=== PATIENT | female | born 1965 | race Caucasian/White ===

== ENCOUNTER 2018-03-08 05:07 | Emergency (ER) | payer SELFPAY ==
[~2018-03-08] VITALS: Ht 160 cm; Wt 68.0 kg
[2018-03-08 05:07] VITALS: BP_SYST 161
[~2018-03-08 05:07] MED LIST: ANXIETY MEDS; BP MEDS; MOTRIN; VICODIN
[2018-03-08] MEDS ORDERED: KETOROLAC TROMETHAMINE 60 MG/2 ML VIAL IM ONE (05:15)
[2018-03-08] MEDS ORDERED: MORPHINE 4 MG/ML INJ. SYRINGE IM ONE (06:00)
[2018-03-08 06:38] VITALS: BP_SYST 15
== END 2018-03-08 06:38 ==
LOC: SED 05:07
DX: R07.89 Other chest pain (principal); F17.210 Nicotine dependence, cigarettes, uncomplicated; R03.0 Elevated blood-pressure reading, without diagnosis of hypertension; Y04.0XXA Assault by unarmed brawl or fight, initial encounter; Y93.89 Activity, other specified; Y92.89 Other specified places as the place of occurrence of the external cause; Y99.8 Other external cause status
CPT/HCPCS: 93005; 96372; 99284; J1885; J2270

== ENCOUNTER 2018-03-08 09:49 | Emergency (ER) | payer SELFPAY ==
[~2018-03-08] VITALS: Ht 157.5 cm; Wt 68.0 kg
[2018-03-08 10:01] VITALS: BP_SYST 203
[2018-03-08] MEDS ORDERED: KETOROLAC TROMETHAMINE 60 MG/2 ML VIAL IM ONE (10:30)
== END 2018-03-08 12:46 ==
LOC: SED 09:49
DX: M94.0 Chondrocostal junction syndrome [Tietze] (principal); R07.89 Other chest pain; R03.0 Elevated blood-pressure reading, without diagnosis of hypertension
CPT/HCPCS: 71046; 96372; 99284; J1885

== ENCOUNTER 2018-03-13 15:13 | Emergency (ER) | payer MEDICAID ==
[~2018-03-13] VITALS: Ht 154.9 cm; Wt 86.2 kg
[2018-03-13 15:15] VITALS: BP_SYST 165
--- NOTE | 2018-03-13 15:17 | NUR ---
12 lead EKG done in triage room and shown to Dr. Deal for interpretation.
--- NOTE | 2018-03-13 19:14 | NUR ---
Patient to ER bed 3 to gown for evaluation. Side rails up. Report given to Radha RAMSAY.
--- NOTE | 2018-03-13 19:15 | NUR ---
Patient AAO x4 sitting in bed c/o chest wall pain to right side x 1 week 03/31 radiating from sternum to right axillary status post fall and crushing injury from " falling on top of me", shortness of breath on inspiration, patient states she was incarcerated for 1 week without any adequate pain control. Patient taking naproxen and aspirin at home for pain with no relief. Vital signs within normal limits. Will continue to monitor.
[2018-03-13] MEDS ORDERED: KETOROLAC TROMETHAMINE 30 MG VIAL IM ONE (19:45)
[2018-03-13] MEDS ORDERED: HYDROcodone/ACETAMIN 5-325 MG TAB (NORCO/ VICODIN) PO ONE (20:30)
[2018-03-13 21:27] VITALS: BP_SYST 168
== END 2018-03-13 21:27 | disposition home or self-care (01) ==
LOC: SED 15:13
DX: R07.81 Pleurodynia (principal); R07.9 Chest pain, unspecified; I10 Essential (primary) hypertension; F41.9 Anxiety disorder, unspecified
CPT/HCPCS: 71045; 71100; 96372; 99284; J1885; 93005

== ENCOUNTER 2018-08-24 13:00 | Inpatient (IN) | payer MEDICAID ==
[~2018-08-24] VITALS: Ht 180.3 cm; Wt 97.1 kg
[2018-08-24] VITALS (7 sets, daily range): BP systolic 134–206
[2018-08-24] MEDS ORDERED: NS 500 ML IV ONE (13:15)
[2018-08-24] MEDS ORDERED: GLUCAGON,HUMAN RECOMBINANT 1 MG VIAL SUBCUT ONE (13:15)
--- NOTE | 2018-08-24 13:20 | NUR ---
Pt was found at home with lacs to left wrist. Pt's family member states that pt was voicing to harm herself earlier. Pt's family member at bedside. Pt does not state if she is currenly wanting to harm herself.
--- NOTE | 2018-08-24 13:20 | NUR ---
Patient to ER bed 5 to gown for evaluation. Side rails up.
--- NOTE | 2018-08-24 13:21 | NUR ---
Patient's belongings taken out from room for safety.
--- NOTE | 2018-08-24 13:25 | NUR ---
ER Dr. Lafleur at bedside examining patient.
[2018-08-24] MEDS ORDERED: DIPH-TET-PERTUS Vaccine 0.5 ML VIAL (ADACEL) I.M. ONE (13:30)
--- NOTE | 2018-08-24 13:39 | NUR ---
Called Poison Control at [phone] and spoke with Poison control staff. Pt refusing to admit what medications rupert took, Poison control notified of pt's home medications ,Per recomendations:Check aspirin levels in lower than 35 start treatment, check heart rate and BP if decreases , start fluids ,if fluids not working start Calcium 1 1/2 times more than normal, check BS, check EKG for QRS prolongation, observ for 24 hours for possible diltiazem,monitor for seizures . Dr. royal. Will continue to monitor patient.
[2018-08-24] MEDS ORDERED: METO50TA7 PO (13:46)
[2018-08-24] MEDS ORDERED: CLI.05P TD (13:46)
[2018-08-24] MEDS ORDERED: SERT25TA PO (13:46)
[2018-08-24] MEDS ORDERED: ESCI10TA PO (13:46)
[2018-08-24] MEDS ORDERED: DILT120C89 PO (13:46)
[2018-08-24] MEDS ORDERED: HCT25 PO (13:46)
[2018-08-24] MEDS ORDERED: LOSA1TAB40 PO (13:46)
[2018-08-24] MEDS ORDERED: CEPH-568 PO (13:46)
[2018-08-24] MEDS ORDERED: HYDR-3698 PO (13:46)
[2018-08-24] MEDS ORDERED: COLC0.6C PO (13:46)
[2018-08-24] MEDS ORDERED: PRO10 PO (13:46)
--- NOTE | 2018-08-24 13:47 | NUR ---
Medication reconciliation completed with information provided by Prescription bottles brought in with patient. Any prior medication reconciliation on file was reviewed and corrected.
--- NOTE | 2018-08-24 14:00 | NUR ---
Patient's family member continues to be at bedside with patient. Patient states she wants to sleep.
[2018-08-24 14:18] LABS: ANION GAP 9 (5-15); CHLORIDE 106 mmol/L (98-107); CREATININE 0.67 mg/dL (0.55-1.30); GLUCOSE 118 mg/dL (70-99); POTASSIUM 4.1 mmol/L (3.5-5.1); SODIUM SERUM 141 mmol/L (136-145); UREA NITROGEN, BLOOD 21 mg/dL (8-21)
[2018-08-24 14:21] LABS: WHITE BLOOD COUNT (AUTO) 6.6 K/uL (4.8-10.8)
[2018-08-24 14:22] LABS: BASOPHILS % (AUTO) 0.6 % (0.0-2.0); EOSINOPHILS % (AUTO) 1.4 % (0.0-4.0); HEMATOCRIT 35.6 % (36-48); HEMOGLOBIN 11.4 g/dL (12.0-16.0); LYMPHOCYTES % (AUTO) 15.2 % (20.5-51.5); MEAN CORPUSCULAR HEMOGLOBIN 27 pg (27-31); MEAN CORPUSCULAR HGB CONC 32 % (32-36); MEAN CORPUSCULAR VOLUME 83 fL (79.0-98.0); MONOCYTES # (AUTO) 0.3 K/uL (0.0-1.0); MONOCYTES % (AUTO) 4.9 % (1.7-9.3); NEUTROPHILS # (AUTO) 5.2 K/uL (1.8-7.7); NEUTROPHILS % (AUTO) 77.9 % (40.0-70.0); PLATELET COUNT (AUTO) 256 K/uL (130-430); RED BLOOD CELL COUNT(AUTO) 4.28 MIL/uL (4.2-6.2); RED CELL DISTRIBUTION WIDTH 15.4 % (9.0-15.0)
[2018-08-24 14:23] LABS: EOSINOPHILS # (AUTO) 0.1 K/uL (0.0-0.4)
[2018-08-24 14:26] LABS: ALANINE AMINOTRANSFERASE 13 U/L (12-78); ALBUMIN 3.2 g/dL (3.4-4.8); ASPARTATE AMINOTRANSFERASE 16 U/L (10-37); CALCIUM 8.6 mg/dL (8.4-11.0); TOTAL BILIRUBIN 0.2 mg/dL (0.0-1.0)
[2018-08-24 14:27] LABS: ACETAMINOPHEN < 1 ug/mL (1-30); ALCOHOL, BLOOD < 3 mg/dL (<10); GFR AFRICAN AMERICAN 119 mL/min (>90)
--- NOTE | 2018-08-24 15:46 | NUR ---
Pt removed from bedpan, small amount of urine obtained not enough for lab. Pt continues to refuse restrepo cath stating she will try later. c/o left hip pain stating she fell yesterday and was seen at unknown facility notified
--- NOTE | 2018-08-24 16:09 | NUR ---
Note nickieamna in EDM - 08/24/18 at 1610 by JOSIAS # 14 FR straight catheter with use of sterile technique. Immediate return of 150 cc yellow cloudy urine noted. Urine sample collected and sent to lab. Pt tolerated procedure well. Patient attempt to use bedpan with little return
[2018-08-24 16:29] LABS: BARBITURATE, URINE NEGATIVE (NEG <=200); BENZODIAZEPINE, URINE NEGATIVE (NEG <=150); CANNABINOID, URINE NEGATIVE (NEG <=50); COCAINE, URINE NEGATIVE (NEG <=150); METHAMPHETAMINES SCREEN,URINE NEGATIVE (NEG <=500); OPIATE, URINE NEGATIVE (NEG <=100); PHENCYCLIDINE SCREEN,URINE NEGATIVE (NEG <=25); UR TRICYCLIC ANTIDEPRESSANTS NEGATIVE (NEG <=300); URINE AMPHETAMINE NEGATIVE (NEG <=500); URINE METHADONE NEGATIVE (NEG <=200); URINE OXYCODONE SCREEN NEGATIVE (NEG <=100); URINE PROPOXYPHENE SCREEN NEGATIVE (NEG <=300)
[2018-08-24] MEDS ORDERED: KETOROLAC TROMETHAMINE 30 MG VIAL IVP ONE (17:00)
--- NOTE | 2018-08-24 17:30 | NUR ---
Patient's family member present at bedside and patient states she wants to sleep.
--- NOTE | 2018-08-24 18:04 | NUR ---
Admission to ICU Pt admitted to ICU [address] Garcia. Pt currently states she wants to "harm" herself. All belongings brought with pt and kept outside of room. Pt will be kept under direct observation.
--- NOTE | 2018-08-24 18:15 | NUR ---
SITTER: Sitter at bedside. Side rails up. Patient states she is hungry, provided patient with snacks.
--- NOTE | 2018-08-24 18:20 | NUR ---
Psych Consult Consult called to Dr. Beltre.
--- NOTE | 2018-08-24 18:30 | NUR ---
Patient states she is sleepy and wants to sleep. Patient states she still wants to hurt herself.
--- NOTE | 2018-08-24 18:45 | NUR ---
Patient asleep, equal chest rise and fall.
--- NOTE | 2018-08-24 19:00 | NUR ---
Dr. Garcia at bedside examining Pt.
--- NOTE | 2018-08-24 19:00 | NUR ---
Patient being seen by Dr. Garcia.
--- NOTE | 2018-08-24 19:15 | NUR ---
Endorsed plan of care to Abram RAMSAY. Patient still stating she wants to harm herself.
--- NOTE | 2018-08-24 19:31 | NUR ---
PM Assessment Pt in bed resting. AAOx4. On RA. SB shown on monitor. no s/s of distress at this time. Pt has RAC 18g SL. Iv site C/D/I. Lacerations noted left wrist. Bed locked in lowest position, call light in reach, safety precautions in place. Will continue to monitor Pt 1:1 throughout shift.
--- NOTE | 2018-08-24 19:45 | NUR ---
Pt hysterically crying. Stating she wants to call her and have him here with her. Will call . Pt voicing suicidal ideations at this time.
--- NOTE | 2018-08-24 20:00 | NUR ---
Pt still crying, now stating she wants to see her mom. Pt says she feels alone. C/O of pain to right hip. Dr. Garcia notified of pain.
[2018-08-24] MEDS ORDERED: HYDROcodone/ACETAMIN 5-325 MG TAB (NORCO/ VICODIN) PO PRN (20:15)
[2018-08-24] MEDS ORDERED: ZOLPIDEM TARTRATE 5 MG TABLET PO PRN (20:15)
[2018-08-24] MEDS ORDERED: FAMOTIDINE 20 MG TABLET PO SCH ×2 (20:15→21:00)
[2018-08-24] MEDS ORDERED: ACETAMINOPHEN 650 MG/20.3 ML UDC PO PRN (20:15)
--- NOTE | 2018-08-24 20:15 | NUR ---
Pt crying stating she still wants her mom to come and visit. Pt requesting to call mom.
--- NOTE | 2018-08-24 20:20 | NUR ---
Security at bedside to wand Pt with metal detector for safety and contraband.
--- NOTE | 2018-08-24 20:30 | NUR ---
Nathalie (Pt's mom) was contacted. Pt currently speaking to mom on phone at bedside. RN Present at bedside within arms length of Pt for safety. No s/s of suicidal behaviors at this time. Pt is more calm while speaking to mother on phone.
--- NOTE | 2018-08-24 20:45 | NUR ---
Pt more calm, no s/s of anxiety or distress noted after speaking to mother. Pt requesting to be left alone to sleep. Pt still c/o of pain to left hip.
[2018-08-24] MEDS: HYDROcodone/ACETAMIN 5-325 MG TAB (NORCO/ VICODIN) PO PRN (20:57)
[2018-08-24] MEDS ORDERED: METOPROLOL SUCCINATE 50 MG TAB.SR.24H (TOPROL XL) PO SCH (21:00)
--- NOTE | 2018-08-24 21:00 | NUR ---
Pt resting in bed. No s/s of distress noted. Still c/o of pain. Awaiting orders for pain medications.
[2018-08-24] MEDS: cloNIDine HCL 0.1 MG TABLET PO PRN (21:05)
--- NOTE | 2018-08-24 21:15 | NUR ---
Pt in bed resting. No s/s of distress noted. Pain medications given. Pt requesting to sleep at this time.
--- NOTE | 2018-08-24 21:30 | NUR ---
Pt asleep supine. Respirations even and unlabored. No s/s of distress noted. BP elevated, Catapres given. Will continue to monitor.
--- NOTE | 2018-08-24 21:45 | NUR ---
Pt remains asleep supine. Respirations even and unlabored. No s/s of distress noted. Will continue to monitor.
--- NOTE | 2018-08-24 22:00 | NUR ---
Pt asleep on right lateral side. No s/s of distress noted. Pt stated pain has decreased with medication given. No s/s of anxiety noted. No active thoughts of SI or SI behavior. Will continue to monitor.
--- NOTE | 2018-08-24 22:15 | NUR ---
Pt remains asleep on right lateral side. No s/s of anxiety or distress noted. Will continue to monitor.
--- NOTE | 2018-08-24 22:15 | NUR ---
Pt crying stating she still wants her mom to come and visit. Pt requesting to call mom. Addendum: 08/24/18 at 2228 by Abram Richter RN Disregard. Wrong time of entry.
--- NOTE | 2018-08-24 22:30 | NUR ---
Pt asleep on right lateral side. No s/s of distress. Respirations even and unlabored. BP remains elevated but trending down. Will continue to monitor.
--- NOTE | 2018-08-24 22:45 | NUR ---
Pt asleep in bed on right lateral side. No s/s of distress noted. No c/o of pain. Respirations are even and unlabored. Will continue to monitor.
--- NOTE | 2018-08-24 23:00 | NUR ---
Pt asleep in supine position. VSS. Elevated BP trending down. Pt showing no s/s of anxiety or distress. Will continue to monitor.
--- NOTE | 2018-08-24 23:15 | NUR ---
Pt asleep supine. Side rails up. No s/s of distress noted. No SI behavior displayed. Will continue to monitor.
--- NOTE | 2018-08-24 23:30 | NUR ---
Pt in bed asleep supine. No s/s of distress noted. Side rail up. Will continue to monitor
--- NOTE | 2018-08-24 23:45 | NUR ---
Pt asleep supine. Even and unlabored respirations. Pt has no s/s of anxiety or any SI behaviors. Will continue to monitor.
[2018-08-25] VITALS (23 sets, daily range): BP systolic 131–182
--- NOTE | 2018-08-25 | NUR ---
Pt awake. Calm and cooperative, asking for assistance to get to the commode. No s/s of distress noted. Pt able to ambulate. no s/s of distress, SI behaviors noted. No c/o of pain at this time. Will continue to monitor.
--- NOTE | 2018-08-25 00:15 | NUR ---
Pt asleep supine. Side rails up. No s/s of distress noted. No SI behavior displayed. Will continue to monitor.
--- NOTE | 2018-08-25 00:30 | NUR ---
Pt asleep in bed supine. No s/s of distress noted. VSS. Will continue to monitor.
--- NOTE | 2018-08-25 00:45 | NUR ---
Pt asleep in bed. No s/s of anxiety or distress noted. Even and unlabored respirations. Side rails up. Will continue to monitor for safety.
--- NOTE | 2018-08-25 01:00 | NUR ---
Pt asleep supine. Side rails up. No s/s of distress noted. No SI behavior displayed. Will continue to monitor.
--- NOTE | 2018-08-25 01:15 | NUR ---
Pt asleep in bed supine position. Pt not in any distress. Respirations even and unlabored. Will continue to monitor.
--- NOTE | 2018-08-25 01:30 | NUR ---
Pt asleep on right lateral position. No s/s of distress noted. VSS, with elevated BP. Will continue to monitor for safety.
--- NOTE | 2018-08-25 01:45 | NUR ---
Pt asleep on right lateral side. No s/s of distress or discomfort noted. Will continue to monitor.
--- NOTE | 2018-08-25 02:00 | NUR ---
Pt asleep on right lateral position. No s/s of anxiety noted. No SI behaviors displayed. Respirations even and unlabored. Will continue to monitor for safety.
--- NOTE | 2018-08-25 02:15 | NUR ---
Pt in bed asleep on supine position. No s/s of distress noted. Will continue to monitor.
--- NOTE | 2018-08-25 02:30 | NUR ---
Pt in bed. No s/s of anxiety noted. Pt respirations even and unlabored. Will continue to monitor for safety.
--- NOTE | 2018-08-25 03:00 | NUR ---
pt sleeping . no resp distress noted. sinus valerio on the monitor.
--- NOTE | 2018-08-25 03:15 | NUR ---
Pt in bed asleep on supine position. Pt has no s/s of anxiety or SI behavior. Will continue to monitor.
--- NOTE | 2018-08-25 03:30 | NUR ---
Pt sleeping supine. No s/s of distress noted. VSS. Will continue to monitor.
--- NOTE | 2018-08-25 03:45 | NUR ---
Pt in bed on supine position. No s/s of distress noted. Will continue to monitor for safety.
--- NOTE | 2018-08-25 04:00 | NUR ---
Pt asleep. Respirations even and unlabored.
--- NOTE | 2018-08-25 04:15 | NUR ---
Pt asleep in bed. no s/s of distress noted. Side rails up. Will continue to monitor.
--- NOTE | 2018-08-25 04:30 | NUR ---
Pt awake in bed. Requesting water and to rinse mouth. Calm and cooperative. No s/s of anxiety or SI behaviors. Will continue to monitor.
[2018-08-25] MEDS: HYDROcodone/ACETAMIN 5-325 MG TAB (NORCO/ VICODIN) PO PRN ×3 (04:41→20:11)
--- NOTE | 2018-08-25 04:45 | NUR ---
Pt awake in bed. c/o of pain in left hip. PRN pain medication given. Pt denies SI at this time. No s/s of anxiety or SI behaviors. No s/s of distress noted. Will continue to monitor.
--- NOTE | 2018-08-25 05:00 | NUR ---
Pt is asleep. No s/s of distress noted.
--- NOTE | 2018-08-25 05:15 | NUR ---
Pt awake getting blood drawn for labs. Calm and cooperative. No s/s of distress noted. Will continue to monitor for safety.
--- NOTE | 2018-08-25 05:30 | NUR ---
Pt asleep in supine position. Will continue to monitor
--- NOTE | 2018-08-25 05:45 | NUR ---
Pt asleep. No s/s of distress or SI behavior noted. Will continue to monitor for safety.
--- NOTE | 2018-08-25 06:00 | NUR ---
Pt asleep in bed. Respirations even and unlabored. Will continue to monitor.
--- NOTE | 2018-08-25 06:14 | NUR ---
Pt awake in bed. Calm and cooperative. Offered a CHG bath once again, but Pt refused. Will continue to monitor.
--- NOTE | 2018-08-25 06:30 | NUR ---
Pt resting in bed with eyes closed. No s/s of distress noted. Will continue to monitor for safety.
--- NOTE | 2018-08-25 06:45 | NUR ---
Dr. Beltre at bedside examining Pt. Pt calm and cooperative. Not expressing SI at the moment. No s/s of distress noted.
--- NOTE | 2018-08-25 06:57 | NUR ---
Closing Note Pt in bed resting. AAOx4. SB shown on monitor. Pt on RA. No s/s of distress noted. LAC 18g noted. Site is C/D/I. No s/s of infiltration noted. Lt wrist lacerations noted. Pt not c/o of any pain at this time. No active SI noted, pt not displaying any SI behavior. Bed locked in lowest position, safety precautions in place. Will endorse to oncoming Nurse.
--- NOTE | 2018-08-25 07:10 | NUR ---
Endorsement Report given to Amol RAMSAY at bedside via SBAR approach.
[2018-08-25 07:11] LABS: CALCIUM 8.6 mg/dL (8.4-11.0); CREATININE 0.65 mg/dL (0.55-1.30); POTASSIUM 3.5 mmol/L (3.5-5.1); THYROID STIMULATING HORMONE 0.52 uIu/mL (0.34-4.82)
--- NOTE | 2018-08-25 07:15 | NUR ---
Opening Note Received bedside report from Abram RAMSAY for continuation of care. Received patient awake and resting in bed. No signs or symptoms of distress noted. Bed locked in lowest position, bed alarm on, and call light within reach.
--- NOTE | 2018-08-25 07:30 | NUR ---
Patient is asleep in bed. No signs or symptoms of distress noted.
[2018-08-25 07:44] LABS: BASOPHILS % (AUTO) 0.4 % (0.0-2.0); EOSINOPHILS # (AUTO) 0.1 K/uL (0.0-0.4); EOSINOPHILS % (AUTO) 1.3 % (0.0-4.0); HEMATOCRIT 34.3 % (36-48); HEMOGLOBIN 10.9 g/dL (12.0-16.0); LYMPHOCYTES # (AUTO) 1.7 K/uL (1.0-5.5); LYMPHOCYTES % (AUTO) 29.7 % (20.5-51.5); MEAN CORPUSCULAR HEMOGLOBIN 26 pg (27-31); MEAN CORPUSCULAR HGB CONC 32 % (32-36); MEAN CORPUSCULAR VOLUME 83 fL (79.0-98.0); MONOCYTES # (AUTO) 0.3 K/uL (0.0-1.0); NEUTROPHILS # (AUTO) 3.5 K/uL (1.8-7.7); NEUTROPHILS % (AUTO) 62.6 % (40.0-70.0); PLATELET COUNT (AUTO) 260 K/uL (130-430); RED BLOOD CELL COUNT(AUTO) 4.14 MIL/uL (4.2-6.2); RED CELL DISTRIBUTION WIDTH 15.3 % (9.0-15.0); WHITE BLOOD COUNT (AUTO) 5.6 K/uL (4.8-10.8)
--- NOTE | 2018-08-25 07:45 | NUR ---
Patient sitting up eating breakfast from safety tray. No signs or symptoms of distress noted. Patient denies any pain.
--- NOTE | 2018-08-25 08:00 | NUR ---
Patient sitting up and eating breakfast from safety tray. No signs or symptoms of distress noted. Patient denies any pain. Patient states she is feeling anxious.
[2018-08-25] MEDS: FLUoxetine HCL 20 MG CAPSULE (PROzac) PO SCH (08:05)
[2018-08-25] MEDS: FAMOTIDINE 20 MG TABLET PO SCH (08:05)
[2018-08-25] MEDS: LORazepam 1 MG TABLET PO PRN ×2 (08:11→17:17)
[2018-08-25] MEDS: LOSARTAN POTASSIUM 50 MG TABLET (COZAAR) PO SCH (08:11)
--- NOTE | 2018-08-25 08:15 | NUR ---
Patient continues to state she feels anxious. PRN medication for anxiety administered. Patient tolerated well. Addendum: 08/25/18 at 0831 by Michelle Thayer RN No signs or symptoms of distress noted.
--- NOTE | 2018-08-25 08:30 | NUR ---
Patient asleep in bed. No signs or symptoms of distress noted.
--- NOTE | 2018-08-25 08:45 | NUR ---
Patient asleep in bed. No signs or symptoms of distress noted.
[2018-08-25] MEDS ORDERED: DILTIAZEM HCL 180 MG CAP.SR.24H PO SCH (09:00)
[2018-08-25] MEDS ORDERED: CITALOPRAM HYDROBROMIDE 20 MG TABLET PO SCH (09:00)
[2018-08-25] MEDS ORDERED: HYDROCHLOROTHIAZIDE 25 MG TABLET (HCTZ) PO SCH (09:00)
[2018-08-25] MEDS ORDERED: SERTRALINE HCL 50 MG TABLET PO SCH (09:00)
--- NOTE | 2018-08-25 09:00 | NUR ---
Patient asleep in bed, wakes up to voice. No signs or symptoms of distress noted.
--- NOTE | 2018-08-25 09:07 | NUR ---
Nutrition Update Huang Scale 18 noted Pt admitted for Suicidal ideation, MDD Diet: 2gm Na+ BMI: 30 RD to follow per nutrition care standards.
--- NOTE | 2018-08-25 09:12 | NUR ---
Dr. Garcia at bedside examining patient and updating on plan of care. Patient verbalized understanding.
--- NOTE | 2018-08-25 09:15 | NUR ---
Patient asleep in bed. No signs or symptoms of distress noted. Bed locked in lowest position, bed alarm on, and call light within reach.
--- NOTE | 2018-08-25 09:30 | NUR ---
Patient asleep in bed. No signs or symptoms of distress noted. Bed locked in lowest position, bed alarm on, and call light within reach.
--- NOTE | 2018-08-25 09:45 | NUR ---
Patient continues to sleep in bed, wakes up to voice. No signs or symptoms of distress noted.
--- NOTE | 2018-08-25 10:00 | NUR ---
Patient sleeping in bed. Patient denies any pain. No signs or symptoms of distress noted.
--- NOTE | 2018-08-25 10:15 | NUR ---
Patient is asleep in bed, arousable to voice and touch. No signs or symptoms of distress noted. Bed locked in lowest position, bed alarm on, and call light within reach.
--- NOTE | 2018-08-25 10:22 | NUR ---
Spoke with patient's mother Nathalie on the phone and updated on status of patient.
--- NOTE | 2018-08-25 10:36 | NUR ---
wallboard worker Irenen at bedside speaking with patient.
--- NOTE | 2018-08-25 10:45 | NUR ---
Patient is awake and sitting up in bed. Patient denies any pain. No signs or symptoms of distress noted.
--- NOTE | 2018-08-25 11:00 | NUR ---
Patient sleeping in bed. No signs or symptoms of distress noted.
--- NOTE | 2018-08-25 11:15 | NUR ---
Patient is asleep in bed. No signs or symptoms of distress noted.
--- NOTE | 2018-08-25 11:30 | NUR ---
Patient sleeping in bed, arousable to voice and touch. No signs or symptoms of distress noted.
--- NOTE | 2018-08-25 11:45 | NUR ---
Patient sleeping in bed. No signs or symptoms of distress noted.
--- NOTE | 2018-08-25 11:56 | NUR ---
SS notes: DOG BEAUTICIAN met with pt at bedside for referral of "mental health/depression/suicide attempt". Pt states she's been depressed since her relationship with her has been strained due to spouse losing his job 3 years ago. Pt states she currently lives with her friend for now. Pt states she started seeing a therapist (in [place]) for a couple of months now, and is receiving depression medication from her psychiatrist (refuse to name). Pt states she does not have a history of suicide ideation/attempt/homicidal ideation/substance use or abuse. Pt states she has a 16 year old daughter who lives with her . Pt denies having access to guns. Pt states this is the first time that she attempted to cut her wrist. Pt identifies her "therapist" as her support system. Pt states she enjoys painting and her goal is to "better understand a lot of stuff around me". Pt states she feels safe going home and denies being depressed currently. DOG BEAUTICIAN encouraged pt to bring self to ER or call 911 if she feels unsafe when at home. DOG BEAUTICIAN provided pt with SS phone number for additional resources and list of Outpatient Mental Health list. No further health social work professor needs identified at this time but will remain available if needed.
--- NOTE | 2018-08-25 11:58 | NUR ---
Patient sleeping in bed. No signs or symptoms of distress noted.
--- NOTE | 2018-08-25 12:00 | NUR ---
Patient is asleep in bed, arousable to voice and touch. No signs or symptoms of distress noted.
--- NOTE | 2018-08-25 12:15 | NUR ---
Patient is awake, sitting up in bed and eating lunch from safety tray. Patient states she has poor appetite. Patient denies any pain. No signs or symptoms of distress noted.
--- NOTE | 2018-08-25 12:26 | NUR ---
Patient's mother Nathalie at bedside. Updated patient and Nathalie on plan of care.
--- NOTE | 2018-08-25 12:30 | NUR ---
Patient is awake, speaking with mother Nathalie at bedside. No signs or symptoms of distress noted.
--- NOTE | 2018-08-25 12:45 | NUR ---
Patient is sleeping on her left side. Mother at bedside. No signs or symptoms of distress noted.
--- NOTE | 2018-08-25 13:00 | NUR ---
Patient is awake and resting in bed, speaking with mother at bedside. No signs or symptoms of distress noted.
--- NOTE | 2018-08-25 13:10 | NUR ---
Patient's daughter Leonor at bedside with patient.
--- NOTE | 2018-08-25 13:15 | NUR ---
Patient is awake, requesting to use restroom. Assisted patient to bedside restroom. Patient tolerated well. Assisted patient back to bed, on cardiac rehabilitation program director. No signs or symptoms of distress noted. Patient complaining of pain. PRN pain medication administered per MD order. Bed locked in lowest position, bed alarm on, and call light within reach.
--- NOTE | 2018-08-25 13:15 | NUR ---
Dr. Beltre paged for orders.
--- NOTE | 2018-08-25 13:30 | NUR ---
Patient is awake and speaking with mother Nathalie and daughter Leonor at bedside. No signs or symptoms of distress.
--- NOTE | 2018-08-25 13:45 | NUR ---
Comfortable, Vitals stable.
--- NOTE | 2018-08-25 14:00 | NUR ---
Pt is awake , resting comfortably.
--- NOTE | 2018-08-25 14:15 | NUR ---
Patient is awake and resting in bed. Son and vlognfeu-lp-ter at bedside. No signs or symptoms of distress.
[2018-08-25] MEDS: cloNIDine HCL 0.1 MG TABLET PO PRN (14:26)
--- NOTE | 2018-08-25 14:30 | NUR ---
Patient is awake and resting in bed. Son and tabmkfgo-gi-lwa at bedside. Patient denies any pain. No signs or symptoms of distress.
--- NOTE | 2018-08-25 14:45 | NUR ---
Patient is awake, sitting up in bed. Son and [id number]-ytr at bedside. No signs or symptoms of distress.
--- NOTE | 2018-08-25 14:55 | NUR ---
DR. CARTAGENA RE-PAGED FOR ORDER CLARIFICATION.
--- NOTE | 2018-08-25 15:00 | NUR ---
Patient is awake, requesting to use restroom. Assisted patient to bedside restroom. Patient tolerated well. Assisted patient back to bed, on telecommunications project manager. No signs or symptoms of distress noted. Patient denies any pain. Bed locked in lowest position, bed alarm on, and call light within reach.
--- NOTE | 2018-08-25 15:15 | NUR ---
Patient is awake and sitting up in bed. Patient's son Mukesh and [id number]-zfo at bedside. No signs or symptoms of distress.
--- NOTE | 2018-08-25 15:30 | NUR ---
Patient is awake and resting in bed. No signs or symptoms of distress noted.
--- NOTE | 2018-08-25 15:45 | NUR ---
Patient sleeping in bed, no signs or symptoms of distress noted.
--- NOTE | 2018-08-25 16:00 | NUR ---
Patient is asleep, no signs or symptoms of distress noted.
--- NOTE | 2018-08-25 16:15 | NUR ---
Patient is asleep in bed, arousable to voice and touch. No signs or symptoms of distress noted.
--- NOTE | 2018-08-25 16:30 | NUR ---
Patient is asleep in bed, arousable to voice and touch. No signs or symptoms of distress noted.
--- NOTE | 2018-08-25 16:45 | NUR ---
Patient is asleep in bed, arousable to voice and touch. No signs or symptoms of distress noted.
--- NOTE | 2018-08-25 17:00 | NUR ---
Patient is asleep, arousable to voice. No signs or symptoms of distress noted.
--- NOTE | 2018-08-25 17:15 | NUR ---
Patient is asleep, arousable to voice. No signs or symptoms of distress noted.
--- NOTE | 2018-08-25 17:30 | NUR ---
Patient is awake and sitting up in bed, eating dinner from paper safety tray. Patient denies any pain. No signs or symptoms of distress noted.
--- NOTE | 2018-08-25 17:45 | NUR ---
Patient is awake and sitting up in bed, eating dinner from paper safety tray. Patient denies any pain. No signs or symptoms of distress noted.
--- NOTE | 2018-08-25 18:00 | NUR ---
Patient is asleep in bed, equal rise and fall of chest. No signs or symptoms of distress.
--- NOTE | 2018-08-25 18:15 | NUR ---
Patient asleep in bed, arousable to voice and touch. No signs or symptoms of distress noted.
--- NOTE | 2018-08-25 18:25 | NUR ---
Endorsed bedside report to Julius TAYLOR for continuation of care.
--- NOTE | 2018-08-25 18:30 | NUR ---
Patient is asleep, no signs or symptoms of distress noted.
--- NOTE | 2018-08-25 18:30 | NUR ---
Dr. Garcia return call. Made aware of patient still being in ICU. Per Dr. Garcia, she needs clearance note/order clarification from Dr. Beltre before patient can be transferred out.
--- NOTE | 2018-08-25 18:32 | NUR ---
Dr. Beltre still has not returned call. Has been paged twice today.
--- NOTE | 2018-08-25 18:46 | NUR ---
Patient is asleep in bed, equal rise and fall of chest. No signs or symptoms of distress.
--- NOTE | 2018-08-25 19:00 | NUR ---
Patient sleeping in bed. No signs or symptoms of distress noted.
--- NOTE | 2018-08-25 19:10 | NUR ---
Endorsement/Closing Note Endorsed bedside report to Rachana RN using SBAR approach for continuation of care.
--- NOTE | 2018-08-25 19:15 | NUR ---
Patient asleep in bed. No signs or symptoms of distress noted. Bed locked in lowest position, bed alarm on, and call light within reach.
--- NOTE | 2018-08-25 19:30 | NUR ---
PT ASLEEP AT THIS TIME.WITH DIRECT OBSERVER AT BEDSIDE.
--- NOTE | 2018-08-25 19:32 | NUR ---
Patient is asleep, no signs or symptoms of distress noted
--- NOTE | 2018-08-25 19:45 | NUR ---
Patient is asleep, no signs or symptoms of distress noted
--- NOTE | 2018-08-25 20:00 | NUR ---
AWAKE, MEDICATED FOR C/O PAIN OVER LEFT HIP.CLAIMS SHE FELL 2 DAYS AGO AND HURT HER LEFT SIDE.SHE ALSO REQUESTING FOR SLEEPING PILL AND AMBIEN WAS GIVEN.HAD A PHONE CALL FROM AND SEEM TO TAKE IT WELL. SALINE LOCK OVER LEFT AC REMAINS INTACT AND FLUSHES WELL.
--- NOTE | 2018-08-25 20:01 | NUR ---
Patient is awake and asking for pain medicine
--- NOTE | 2018-08-25 20:11 | NUR ---
Patient received pain medication and is now resting on her right side
--- NOTE | 2018-08-25 20:30 | NUR ---
Patient is awake and is on the phone. No signs or symptoms of distress noted.
--- NOTE | 2018-08-25 20:45 | NUR ---
Patient is awake and is asking to speak with RN. No signs or symptoms of distress noted.
--- NOTE | 2018-08-25 21:00 | NUR ---
patient is moving to different room. No signs or symptoms of distress noted.
--- NOTE | 2018-08-25 21:05 | NUR ---
TRANSFERRED TO ICU-7 VIA BED, BECAUSE IT HAS A CAMERA.
--- NOTE | 2018-08-25 21:15 | NUR ---
Patient sleeping in bed. No signs or symptoms of distress noted.
--- NOTE | 2018-08-25 21:15 | NUR ---
NOTED DR CARTAGENA, DICTATED CONSULTATION AT 0700 THIS MORNING BUT IT WAS NOT TRANSCRIBED TILL 2041 TONRICKEY.HE DOCUMENTED THAT PT IS NOT SUICIDAL AND CAN BE DISCHARGED HOME WHEN MEDICALLY CLEAR.DR VILLASENOR CONTACTED AND UPDATED.SHE GAVE ORDER TO TRANSFER PT TO MED-SURG FLOOR, NO SITTER NEEDED.
--- NOTE | 2018-08-25 21:33 | NUR ---
Patient sleeping in bed. No signs or symptoms of distress noted.
--- NOTE | 2018-08-25 21:35 | NUR ---
RN TELEPHONIC NURSE NOTIFIED OF TRANSFER ORDER. WILL KEEP PT IN ICU MED-SURG CONVENIENCE DUE TO MST STAFFING PER RN TELEPHONIC NURSE. DIRECT OBSERVER NOW DISCONTINUED.
[2018-08-26] VITALS: BP_SYST 145
[2018-08-26 04:00] VITALS: BP_SYST 152
--- NOTE | 2018-08-26 05:55 | NUR ---
AWAKE AT THIS TIME, INFORMED PT OF THE ORDER TO TRANSFER TO REGULAR FLOOR AND AGREED.ASKED IF SHE WILL GO HOME TODAY AND I TOLD HER THAT HER DOCTOR WILL LET HER KNOW WHEN SHE SEES HER TODAY.TRANFERRED TO RM 122-A PER W/C WITH BELONGINGS.REPORT GIVEN TO CITLALY SPAULDING.
--- NOTE | 2018-08-26 06:04 | NUR ---
Notified at 0240 that will receive an admission from ICU from charge nurse Ruvalcaba. Received report for the patient via telephone at 0430 from Maryan; however, Rachana stated that she will not transfer the patient, since the patient is sleeping. Charge nurse Peg made aware of the situation, and apparently fuel house attendant made aware. Patient arrived on the unit at 0602, currently sleeping comfortably in bed. No SOB, no acute distress, no signs of pain or facial grimacing noted. Breathing even and unlabored with visible chest rise and fall noted. IV site intact, dressing clean and dry, saline locked. Bed is locked, in the lowest position, 2x side rails up, bed alarm is on. Call light is within reach. Will continue with plan of care.
--- NOTE | 2018-08-26 07:22 | NUR ---
Closing Notes Patient resting comfortably in bed with eyes closed. Breathing even and unlabored with visible chest rise and fall noted. Bed is locked, in the lowest position, 2x side rails up, bed alarm is on. Call light is within reach. Fall and safety precautions maintained. All needs have been met during this shift. Will endorse care to oncoming dayshift nurse.
[2018-08-26] MEDS: FAMOTIDINE 20 MG TABLET PO SCH (08:17)
[2018-08-26] MEDS: LORazepam 1 MG TABLET PO PRN (08:18)
[2018-08-26] MEDS: FLUoxetine HCL 20 MG CAPSULE (PROzac) PO SCH (08:18)
[2018-08-26] MEDS: LOSARTAN POTASSIUM 50 MG TABLET (COZAAR) PO SCH (08:18)
[2018-08-26 08:20] VITALS: BP_SYST 150
--- NOTE | 2018-08-26 08:20 | NUR ---
Routine Patient resting in bed with no distress noted. Complained of anxiousness and requested ativan. Scheduled medications and prn med given per order. Patient stable at this time.
[2018-08-26] MEDS: HYDROcodone/ACETAMIN 5-325 MG TAB (NORCO/ VICODIN) PO PRN (09:05)
--- NOTE | 2018-08-26 09:05 | NUR ---
Routine Patient complained of 8/10 right hip pain. Due pain med given per order. Patient stable.
[2018-08-26 12:25] VITALS: BP_SYST 140
[2018-08-26 12:38] VITALS: BP_SYST 140
--- NOTE | 2018-08-26 13:20 | NUR ---
Discharge instructions Patient given medication reconciliation form, prescriptions x3, and D/C instructions. Exit Care provided. Patient verbalized understanding. MD discussed with patient the results and treatment provided. Ambulatory with steady gait for discharge to home. Patient in stable condition, ID band removed. IV catheter removed, intact and dressing applied, no active bleeding. Rx of given. Patient educated on pain management. All belongings with patient. Patient stable.
--- NOTE | 2018-08-26 13:50 | NUR ---
Discharge Patient discharged to home in stable condition, accompanied by , mother, and daughter.
== END 2018-08-26 13:50 | disposition home or self-care (01) | DRG 384 ==
LOC: SED 13:00 → SIC 16:53 → SMU 08-26 05:58
PROVIDERS: ADMIT Internal Medicine; ATTEND Internal Medicine
DX: S61.512A Laceration without foreign body of left wrist, initial encounter (principal); R45.851 Suicidal ideations; F33.2 Major depressive disorder, recurrent severe without psychotic features; E44.1 Mild protein-calorie malnutrition; F41.9 Anxiety disorder, unspecified; I10 Essential (primary) hypertension; X78.8XXA Intentional self-harm by other sharp object, initial encounter; Y93.89 Activity, other specified; Z79.899 Other long term (current) drug therapy; Y92.89 Other specified places as the place of occurrence of the external cause; Y99.8 Other external cause status
CPT/HCPCS: 36415; 70450-TC; 73502; 80048; 80053; 80307; 84443-TC; 85025; 87081; 90715; 93005; 96361; 96372; 96374; 99285; G0480; G0481; G0482; J1610; J1885

== ENCOUNTER 2019-03-07 23:22 | Emergency (ER) | payer SELFPAY ==
[~2019-03-07] VITALS: Ht 167.6 cm; Wt 99.8 kg
[~2019-03-07 23:22] MED LIST changes: -ANXIETY MEDS; -BP MEDS; -MOTRIN; +PRO10 PO; -VICODIN
[2019-03-07 23:39] VITALS: BP_SYST 175
[2019-03-08 01:01] LABS: ANION GAP 9 (5-15); CHLORIDE 106 mmol/L (98-107); CREATININE 0.64 mg/dL (0.55-1.30); GFR AFRICAN AMERICAN 125 mL/min (>90); GLUCOSE 96 mg/dL (70-99); POTASSIUM 3.8 mmol/L (3.5-5.1); SODIUM SERUM 143 mmol/L (136-145); UREA NITROGEN, BLOOD 18 mg/dL (8-21)
[2019-03-08 01:04] LABS: BASOPHILS % (AUTO) 0.5 % (0.0-2.0); EOSINOPHILS # (AUTO) 0.1 K/uL (0.0-0.4); HEMATOCRIT 37.5 % (36-48); HEMOGLOBIN 12.7 g/dL (12.0-16.0); LYMPHOCYTES # (AUTO) 1.6 K/uL (1.0-5.5); LYMPHOCYTES % (AUTO) 27.2 % (20.5-51.5); MEAN CORPUSCULAR HEMOGLOBIN 29 pg (27-31); MEAN CORPUSCULAR HGB CONC 34 % (32-36); MEAN CORPUSCULAR VOLUME 85 fL (79.0-98.0); MONOCYTES # (AUTO) 0.3 K/uL (0.0-1.0); MONOCYTES % (AUTO) 5.4 % (1.7-9.3); NEUTROPHILS # (AUTO) 3.8 K/uL (1.8-7.7); NEUTROPHILS % (AUTO) 65.9 % (40.0-70.0); PLATELET COUNT (AUTO) 293 K/uL (130-430); RED BLOOD CELL COUNT(AUTO) 4.39 MIL/uL (4.2-6.2); RED CELL DISTRIBUTION WIDTH 16.4 % (9.0-15.0); WHITE BLOOD COUNT (AUTO) 5.8 K/uL (4.8-10.8)
[2019-03-08 01:15] LABS: ALANINE AMINOTRANSFERASE 12 U/L (12-78); ALBUMIN 3.3 g/dL (3.4-4.8); ASPARTATE AMINOTRANSFERASE 15 U/L (10-37); TOTAL BILIRUBIN 0.2 mg/dL (0.0-1.0)
[2019-03-08 01:16] LABS: ACETAMINOPHEN < 1 ug/mL (1-30); ALCOHOL, BLOOD < 3 mg/dL (<10)
[2019-03-08] MEDS ORDERED: LORazepam 2 MG/ML VIAL IM ONE ×2 (13:30→14:00)
[2019-03-08 15:23] LABS: BILIRUBIN,URINE NEGATIVE (NEGATIVE); BLOOD, URINE NEGATIVE (NEGATIVE); CLARITY/URINE HAZY (CLEAR); COLOR,URINE YELLOW (YELLOW); GLUCOSE,URINE NEGATIVE (NEGATIVE); KETONES,URINE NEGATIVE (NEGATIVE); LEUKOCYTE ESTERASE ,URINE NEGATIVE (NEGATIVE); NITRITE, URINE POSITIVE (NEGATIVE); PH,URINE 6.5 (5.0-8.0); PROTEIN URINE NEGATIVE (NEGATIVE); UROBILINOGEN,URINE 0.2 (0.2-1.0)
[2019-03-08 15:44] LABS: BACTERIA,URINE MANY /HPF (None Seen); RBC,URINE NONE SEEN /HPF (0-3)
[2019-03-08 15:45] LABS: MUCUS,URINE 1+ /LPF (None Seen)
[2019-03-08] MEDS ORDERED: amLODIPine BESYLATE 10 MG TABLET PO ONE (17:30)
[2019-03-08 17:57] VITALS: BP_SYST 131
== END 2019-03-08 17:57 ==
LOC: SED 23:22
DX: T43.592A Poisoning by other antipsychotics and neuroleptics, intentional self-harm, initial encounter (principal); F32.9 Major depressive disorder, single episode, unspecified; I10 Essential (primary) hypertension; F41.9 Anxiety disorder, unspecified; Y92.89 Other specified places as the place of occurrence of the external cause
CPT/HCPCS: 36415; 80053; 81000; 85025; 87086; 93005; 96372; 99285; G0480; G0481; G0482; J2060